=== PATIENT | female | born 1970 | race Caucasian/White ===

== ENCOUNTER 2019-02-03 11:49 | Day surgery (SDC) | payer OTHER ==
[~2019-02-03] VITALS: Ht 167.6 cm; Wt 106.6 kg
[~2019-02-03 11:49] MED LIST: AMBIEN5 MG PO; FLEXERIL10 MG PO; IMITREX100 MG PO; NORCO 5-325 TA1 EACH PO; ZYRTEC10 MG PO
[2019-02-03] MEDS ORDERED: PRILOSEC OTC20 MG PO (12:12)
--- NOTE | 2019-02-03 16:03 | NUR ---
02/03/19 1602 Madeline Whitley SN 1553 PT ARRIVES IN PACU IN LEFT LATERAL POSITION. PT IS ASLEEP. RESPIRATIONS ARE EVEN AND UNLABORED. O2 SAT MID TO HIGH 90'S. PT REACTS TO VOICE BUT FALLS BACK ASLEEP. 1557 02 DISOCNTINUES. PT TOLERATING WELL. REQUIRES FREQUENT REMINDERS TO TAKE DEEP BREATHS. 02 SATURATION LEVELS DROP TO HIGH 80'S, BUT RETURN TO MID 90'S WITH DEEP BREATHING. PT DENIES NAUSEA, DIZZINESS, AND PAIN AT THIS TIME. PT RESTING IN SUPINE POSITION.
--- NOTE | 2019-02-03 16:55 | NUR ---
PT RETURNS FROM PACU BACK TO ROOM 6 ON RA. PT NEEDS MORE TIME TO RECOVER FORM COLONOSCOPY. PT DESATS TO 80% WHEN ASLEEP. PT CURRENTLY AWAKE AND RA SATS ARE 100%. WILL CONTINUE TO MONITOR. PT PROVIDED WITH ICE WATER. FAMILY AT BEDSIDE. CALL LIGHT WITHIN REACH
--- NOTE | 2019-02-03 17:15 | NUR ---
PT AMBULATES TO BATHROOM TO VOID AND TOLERATES. PT DENIES LIGHTHEADEDNESS, NAUSEA. PT DENIES PAIN. PT ABLE TO VOID W/OUT DIFFICULTY. PT BACK TO BED. RA SATS REMAIN >90% FOR 30 MINUTES. IV DC'D WNL.
--- NOTE | 2019-02-03 17:48 | NUR ---
DC INSTRUCTIONS WITH PRECAUTIONS PROVIDED. PT VERBALIZES UNDERSTANDING AND DENIES FURTHER QUESTIONS. PT TRANSPORTED IN WHEELCHAIR TO VEHICLE DRIVEN BY SIGNIFICANT OTHER
--- NOTE | 2019-02-04 09:42 | OR ---
[facility] [address], [place] [address] Signed DATE OF OPERATION: 02/03/2019 SURGEON: Alee Lowe MD PREOPERATIVE DIAGNOSES: 1. Anemia. 2. Episodic dysphagia and known reflux long-standing. POSTOPERATIVE DIAGNOSES: 1. Low-grade Schatzki's ring with chronic esophagitis and poor flap valve. 2. Antral gastritis. 3. Sigmoid diverticulosis. PROCEDURE: 1. Esophagogastroduodenoscopy with biopsy. 2. Total colonoscopy to cecum. ANESTHESIA: Intravenous sedation, fentanyl 200 mcg and Versed 12 mg. INDICATION: This 48-year-old white woman is a patient of Dr. Elvia Kahn has longstanding reflux symptoms which is generally well managed with omeprazole. She does have episodic dysphagia. She has had no hematemesis or blood per rectum. She is noted to be anemic. She has never had colonoscopy in the past. She has no family history of colon cancer or esophageal cancer. Additionally, she has noticed a skin lesion in the right medial thigh that has enlarged over time for which excision is anticipated in the near future. She was admitted at this time to undergo upper endoscopy and colonoscopy to better determine the source of her anemia. She is morbidly obese, 5 feet 6 inches tall and 235 pounds. She understands the risks of bleeding, infection, and perforation related to upper endoscopy and colonoscopy and wished to proceed. FINDINGS: On upper endoscopy, the vocal cords were normal. The esophagus did not show ulceration or true stricture, though she did have a Schatzki's ring in the distal portion. There was mild felinization of the midportion. The stomach showed normal motility and rugal folds. The antrum was chronically inflamed. The pylorus was normal as was the duodenum. CLOtest was negative 40 minutes post procedure. On colonoscopy, she had numerous diverticula of the sigmoid and left colon, but no sign Electronically Signed By: AELE LOWE MD 02/04/19 0942 PATIENT NAME: ARCADIO MEDINA OPERATIVE REPORT DATE OF : 66 REPORT #: [id number] PHYSICIAN: ALEE LOWE MD PCP: ELVIA KAHN MD REPORT IS CONFIDENTIAL AND NOT TO BE RELEASED WITHOUT AUTHORIZATION [facility] [address], [place] [address] Signed of polyps, colitis, cancer, or other problem. Good visualization of the cecum was noted. DESCRIPTION OF PROCEDURE: The patient was brought to the endoscopy suite, given topical Hurricaine spray hypopharyngeal anesthesia and placed in lateral decubitus position. She was given intravenous sedation to the point of slurred speech and nystagmus. A bite block was placed. An Olympus video upper endoscope was passed in the hypopharynx. The vocal cords appeared normal. The scope was advanced to the esophagus without problem, throughout its length it looked reasonably normal. In the distal portion there was a low-grade Schatzki's ring. The scope was passed into the stomach, which was insufflated with air. Rugal folds were normal as was the antral motility. The pylorus was normal and scope was passed through into the duodenum, which was normal. Biopsies were taken there to assess for celiac disease. The scope was withdrawn and biopsies were taken of the antrum for both ANEESH and pathologic testing. The antrum did look to be chronically inflamed, but there was no jordan ulceration or erosion. Retroflexed view was undertaken showing an effaced flap valve. There was no sign of proximal gastric ulceration. The scope was withdrawn to the distal esophagus and the Schatzki's ring was biopsied. The scope was withdrawn to the mid portion where mild ring formation was noted. Biopsies were obtained to assess for eosinophilic esophagitis. Careful withdrawal of scope showed no other findings of concern. Plans were made for colonoscopy at that point. The table was rotated and additional sedation given. Digital rectal examination was normal. An Olympus video colonoscope was passed in the rectum and manipulated throughout the colon noting numerous diverticula of the sigmoid and left colon. Passage beyond the hepatic flexure required abdominal wall stabilization and additional sedation. The cecum was within reach, but the scope could not quite pass into it and therefore a "pull up" procedure was done with a forceps elevated in the mucosa behind the cecum and ileocecal valve. Ultimately, manipulating the scope to fully visualize the cecum itself. The appendiceal orifice was normal as was the ileocecal valve. The scope was then withdrawn from that point. Examination throughout, upon careful withdrawal of scope showed only diverticulosis of the sigmoid and left colon. No sign of polyps, colitis, cancer, or other issue. Retroflexed view was normal as well. The scope was removed. The patient was taken to recovery room in good condition. CONCLUDING DIAGNOSIS: 1. Schatzki's ring related to chronic esophagitis. No sign of Tejeda's epithelium or worsen lesion. 2. Chronic gastritis of antrum, probably related to ongoing use of nonsteroidal medication, ibuprofen. Electronically Signed By: ALEE LOWE MD 02/04/19 0942 PATIENT NAME: ARCADIO MEDINA OPERATIVE REPORT DATE OF : 66 REPORT #: [id number] PHYSICIAN: ALEE LOWE MD PCP: ELVIA KAHN MD REPORT IS CONFIDENTIAL AND NOT TO BE RELEASED WITHOUT AUTHORIZATION [facility] [address], [place] [address] Signed 3. Diverticulosis of colon. No sign of ulceration, neoplasm, or polyp. PLAN: I would recommend continued use of PPI medication, but minimizing nonsteroidal medication. She will return to the ongoing care of Dr. Kahn otherwise. MD JOSELITO Sherman/XIOMYL /[id number] cc: Elvia Kahn MD Copies: ~ Electronically Signed By: ALEE LOWE MD 02/04/19 0942 PATIENT NAME: ARCADIO MEDINA OPERATIVE REPORT DATE OF : 66 REPORT #: [id number] PHYSICIAN: ALEE LOWE MD PCP: ELVIA KAHN MD REPORT IS CONFIDENTIAL AND NOT TO BE RELEASED WITHOUT AUTHORIZATION
== END 2019-02-03 17:35 | disposition home or self-care (01) ==
LOC: OPS 11:49 → DS 11:49 → OPS 12:00 → DS 12:00 → OPS 17:35
PROVIDERS: Surgery
PROC: 0DB28ZX Excision of Middle Esophagus, Via Natural or Artificial Opening Endoscopic, Diagnostic (ICD-10-PCS; 2019-02-03)
PROC: 0DB38ZX Excision of Lower Esophagus, Via Natural or Artificial Opening Endoscopic, Diagnostic (ICD-10-PCS; 2019-02-03)
PROC: 0DJD8ZZ Inspection of Lower Intestinal Tract, Via Natural or Artificial Opening Endoscopic (ICD-10-PCS; 2019-02-03)
PROC: 0DB98ZX Excision of Duodenum, Via Natural or Artificial Opening Endoscopic, Diagnostic (ICD-10-PCS; principal; 2019-02-03 12:00)
PROC: 0DB78ZX Excision of Stomach, Pylorus, Via Natural or Artificial Opening Endoscopic, Diagnostic (ICD-10-PCS; 2019-02-03 12:00)
DX: K29.50 Unspecified chronic gastritis without bleeding (principal); K57.30 Diverticulosis of large intestine without perforation or abscess without bleeding; K22.2 Esophageal obstruction; K21.0 Gastro-esophageal reflux disease with esophagitis; E66.01 Morbid (severe) obesity due to excess calories; D48.5 Neoplasm of uncertain behavior of skin; D50.9 Iron deficiency anemia, unspecified; Z88.6 Allergy status to analgesic agent; Z68.37 Body mass index [BMI] 37.0-37.9, adult
CPT/HCPCS: 99153; G0500; J2250; J3010; J7120

== ENCOUNTER 2022-12-13 05:04 | Inpatient (IN) | payer OTHER ==
[~2022-12-13] VITALS: Ht 167.6 cm; Wt 111.8 kg
[~2022-12-13 05:04] MED LIST changes: +PRILOSEC OTC20 MG PO
--- NOTE | 2022-12-13 11:34 | NUR ---
PATIENT TO ROOM 116 TRANSPORTED BY GURNEY. PATIENT ABLE TO STAND TO TRANSFER TO BED, APPEARED STEADY ON FEET. FULL BODY ASSESSMENT DONE. FULL ADMISSION COMPLETED. ADMINISTERED 4MG OF MORPHINE PER MAR FOR SHARP RUQ PAIN 8/10 ON PAIN SCALE. ADMINISTERED MEDICATIONS PER MAR. LR BOLUS INFUSING. PATIENT HAD 15ML EMESIS OF BILE, ADMINISTERED 8MG IV ZOFRAN PER MAR. ULTRASOUND NOW IN ROOM, PATIENT RATES PAIN 4/10 ON PAIN SCALE, MORPHINE EFFECTIVE.
[2022-12-13] MEDS ORDERED: NEURONTIN300 MG PO (12:45)
[2022-12-13] MEDS ORDERED: ZOLOFT100 MG PO (12:45)
--- NOTE | 2022-12-13 12:57 | NUR ---
CALLED DR. LOWE, PROVIDED VERBAL REVIEW OF IMPRESSION OF US DONE. NO NEW ORDERS. NURSE HANDOFF TO KILO LOPEZ.
[2022-12-13] MEDS ORDERED: OMEPRAZOLE40 MG PO (13:51)
--- NOTE | 2022-12-13 14:06 | HP ---
[facility] [address] [place], [place] [address] Signed ADMISSION DATE: 12/13/2022 REASON FOR ADMISSION: Right upper abdominal pain and tenderness, possible cholecystitis. HISTORY OF PRESENT ILLNESS: This 52-year-old white woman presented to the emergency room this morning and was evaluated by Dr. Alee Valdes with complaints of severe right upper abdominal pain. His evaluation included a Chem profile, CBC and CT scan and urinalysis, all of which were essentially normal. A CT scan did show some diverticula of the hepatic flexure of the colon. She has marked tenderness and pain in the right upper quadrant, which is required a fair amount of opiate pain medication for control. The patient noticed not feeling well over the preceding 3 days and missed 2 days of work for it and last night at about 10 p.m. had more severe pain. She admits this was after eating. She had no associated diarrhea or constipation and no blood per rectum and no hematemesis. Her presentation was at approximately 6 a.m., initial evaluation by Dr. Jordan. The patient does note some right subscapular pain as well. The patient does have distant history of right nephrolithiasis approximately 10 years ago and thought that the pain was similar to that in the past. As noted; however, the CT scan showed small nonobstructing calculus seen in the left kidney. No ureteral calculi or hydronephrosis on the right or left side. The patient has undergone colonoscopy by me in the past she says. Review of the computer showed on February 03, 2019 that I performed upper endoscopy as well as colonoscopy. She had sigmoid diverticulosis at that time and a low-grade Schatzki's ring with chronic esophagitis. REVIEW OF SYSTEMS: She denies any precordial chest pain or shortness of breath. She has had no dysphagia or hematemesis and denies blood per rectum. SOCIAL HISTORY: She is . Her accompanies her. 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 She has grown children. PHYSICAL EXAMINATION: VITAL SIGNS: Her pulse is 55, blood pressure 132/75, respiratory rate 16. GENERAL: She is somewhat somnolent related to the pain medicine that has been administered, but she is able to appropriately answer questions. Her assists as well. Electronically Signed By: ALEE LOWE MD 12/13/22 1406 PATIENT NAME: ARCADIO MEDINA HISTORY AND PHYSICAL DATE OF : 66 REPORT #: [id number] PHYSICIAN: ALEE LOWE MD PCP: VENTURA DIALLO MD REPORT IS CONFIDENTIAL AND NOT TO BE RELEASED WITHOUT AUTHORIZATION [facility] [address] [place], [place] [address] Signed HEENT: Mucous membranes are slightly dry. Trachea is midline. CHEST: Shows normal respiratory excursion. She has no tachypnea. HEART: Regular. ABDOMEN: Obese. She has significant tenderness in the right upper quadrant. There is no ascites. She has no tenderness elsewhere. EXTREMITIES: Show no clubbing, cyanosis, or edema. LABORATORY STUDIES: Show a white count of 9.8, hematocrit 41.7, platelets 255,000. Chem profile is normal. Glucose 174. Hemoglobin A1c of 5.1. Liver enzymes are normal. Lipase 67, normal. Urinalysis is negative. Serologies negative for coronavirus. I have reviewed the CT scan as well as the interpretation by the radiologist. Diverticula are noted in the hepatic flexure of the colon. She has no evidence of basilar pneumonia. The gallbladder was somewhat distended, though that was not noted by the radiologist. I see no radiopaque stones in the gallbladder. Appears to be some haziness in the pericholecystic area including that of the colon itself. ASSESSMENT: The patient has significant tenderness and relatively recent onset of pain. I suspect either acute cholecystitis or less likely acute hepatic flexure diverticulitis. I have recommended admission to the hospital, IV antibiotic administration and we will obtain a gallbladder ultrasound to assess for stones. If stones are identified, then this represents acute cholecystitis related to gallstones and cholecystectomy would be recommended. If the gallbladder is entirely normal, this may well represent case of hepatic flexure colonic diverticulitis for which antibiotic therapy would be beneficial. I discussed this with the patient and her . They understand and agree. MD JOSELITO Sherman/MODL /[id number] cc: Dr. Alee Valdes [facility] Electronically Signed By: ALEE LOWE MD 12/13/22 1406 PATIENT NAME: ARCADIO MEDINA HISTORY AND PHYSICAL DATE OF : 66 REPORT #: [id number] PHYSICIAN: ALEE LOWE MD PCP: VENTURA DIALLO MD REPORT IS CONFIDENTIAL AND NOT TO BE RELEASED WITHOUT AUTHORIZATION [facility] [address] [place] [id number] Signed Copies: ~ Electronically Signed By: ALEE LOWE MD 12/13/22 1406 PATIENT NAME: ARCADIO MEDINA MEGAN HISTORY AND PHYSICAL DATE OF : 66 REPORT #: [id number] PHYSICIAN: ALEE LOWE MD PCP: VENTURA DIALLO MD REPORT IS CONFIDENTIAL AND NOT TO BE RELEASED WITHOUT AUTHORIZATION
--- NOTE | 2022-12-13 14:12 | NUR ---
PER MD GIVE ANCEF ONCE AT THIS TIME. SURGERY STAFF NOTIFIED OF ABX ORDER. PATIENT LEAVING THE MS FLOOR WITH OR CHARGE.
--- NOTE | 2022-12-13 14:25 | NUR ---
RECEIVED NURSE REPORT FROM HIRAM AT 1300. PATIENT REQUESTED TO VOID AT AFTER BEDSIDE REPORT- SBA TO BR AND PATIENT VOIDED 700 ML. ASSTED PT BACK TO BED AND SHE REPORTED RUQ PAIN 8/10 CONSTANT AND SHARP WITH MILD NAUSEA WITH PAIN. DR LOWE ARRIVED APPROX 1330 - DISCUSSED DX/PROCEDURE/CONSENT WITH PATIENT. AFTER CONSENT SIGNED MORPHINE PROVIDED SEE EMR. OBTAINED VS AND I&O. CHANGED PATIENT INTO HOSPITAL GOWN AND REMOVED UNDERWEAR PATIENT WITH BILE EMESIS X 1. SURGICAL WIPE DOWN COMPLETED. LR AND EXTENSION TUBING PROVIDED WHEN SURGICAL NURSES ARRIVED. NOFITIFED ORTHOPEDIC SHOE FITTER LENKA OCHOA AT TIME PATIENT LEFT FOR OR. PATIENT TO OR WITH SURGICAL NURSES APPROX 1412
--- NOTE | 2022-12-13 16:06 | NUR ---
12/13/22 1606 Mouna Beaulieu 1603: PT ARRIVES TO PACU SUPINE WITH OPA IN PLACE. Emani REYES CRNA AT BEDSIDE GIVES VERBAL REPORT. Lacy HOLDEN RN SECOND ASSITING WITH CHIN SUPPORT. PT NON AROUSAL WITH VERBAL OR PAINFUL SIMULI.
--- NOTE | 2022-12-13 17:10 | NUR ---
PATIENT ARRIVED TO MS ROOM 116 WITH DARSHAN DATA ARCHITECT MANAGER. PATIENT AWAKE AND TALKING WITH STAFF AND EATING ICE CHIPS. VITALS DONE. PATIENT HAS LAP SITES X3 AND AN ADDITIONAL SITE WITH A SANTA DRAIN PRESENT. SOME DRAINAGE NOTED AT UMBILLICUS LAP SITE. SANTA DRAIN HAS SANGENSOUS BLOOD PRESENT. PATIENT REPORTS SHOULDER PAIN AND SOME MILD ABD PAIN AT THIS TIME THAT IS TOLERABLE. PATRICIA CATHETER PRESENT. NO OTHER NEEDS AT THIS TIME. WILL CONTINUE TO CLOSELY MONITOR.
--- NOTE | 2022-12-13 17:39 | NUR ---
patient arrived from pacu at approx 1700- inital postop vs obtained by shannon doss RN. Patient is drowsy but easily awakes. patient's at bedside. patient arrived post op with 4 laprascopic abdominal inscisions. 2 midline (one superior and one umbelicus - sm amount of strike through at umbellical site. and 2 Rt abd sites (one RUQ and one inferior to that with SANTA in place) 4 lap sites total. Emptied 45 ml sero/sangenous drainage from SANTA at approx 1730. plan to reassess vs at 1800, and reinforce umbellicus lap site with gauze, and reassess pain. Will provide 7-up per patient request. diet has been modified to regular postoperatively
--- NOTE | 2022-12-13 19:24 | NUR ---
RECEIVED REPORT FROM OFFGOING SHIFT, HOURLY ROUNDING INITIATED.
--- NOTE | 2022-12-13 22:59 | NUR ---
RECEIVED PT FROM PREVIOUS NURSE PT ALERT AND ORIENTED ABLE TO MAKE NEEDS KNOWN. RESP EVEN ET UNLABORED. PT HAS RUQ SANTA DRAIN AND PATRICIA CATHETHER BOTH INTACT. PT ON CONTINUOUS PULSE OX. PT COMPLAINED OF PAIN AT 9 GIVEN PRN MORPHINE MED WAS EFFECTIVE. PT DESATS WHILE SLEEPING DOWN TO 85-88% PUT PT ON O2 @ 2L NC. PT HAS NO OTHER COMPLAINTS AT THIS TIME.
--- NOTE | 2022-12-14 06:25 | NUR ---
PT HAD UNEVENTFUL NIGHT RECEIVED PAIN MEDICATION SEVERAL TIMES THROUGHOUT THE NIGHT. PT STATED DIDN'T AMBULATE YESTERDAY AFTER SURGERY INFORMED THAT SHE WOULD HAVE TO AMBULATE SOMETIME THIS MORNING PT ALSO STATED DIDN'T PASS GAS OR HAVE BM. PT USES IS X 3 REPS @1500 WHILE AWAKE INSTRUCTED TO INCREASE REPS BY 2 EACH TIME USED. PT SANTA DRAIN INTACT 100ML OF SEROSANGUINOUS FLUID DRAINED. PATRICIA PATENT AND INTACT INFORMED PATRICIA WOULD MOST LIKELY BE D/C'D TODAY AND WOULD HAVE TO VOID BEFORE DISCHARGE PT UNDERSTOOD. PT CURRENTLY LYING IN BED USING IS. PT GIVEN PRN MORPHINE FOR PAIN @ 0553 MED WAS EFFECTIVE PAIN LEVEL DOWN FROM 10 TO AROUND 5. PT BP ELEVATED RECHECKED AFTER PAIN MEDICATION GIVEN 127/64. NO ACUTE DISTRESS NOTED AT THIS TIME.
--- NOTE | 2022-12-14 08:07 | NUR ---
PT IN BED THIS AM, NURSE AND ENVIRONMENTAL ANALYST HAD A CONVERSATION ABOUT PLANNING A WALK AND MOVEMENT. CALL LIGHT WITHIN REACH.
--- NOTE | 2022-12-14 09:30 | NUR ---
PATIENT IN CHAIR AFTER MEAL. VITALS AND I/O'S COMPLETED. PATRICIA DRAINED AND DOCUMENTED. CALL LIGHT WITHIN REACH.
--- NOTE | 2022-12-14 09:50 | NUR ---
PATRICIA REMOVED. PATIENT REPORTS PAIN CONTROLLED. HAS BEEN UP AMBULATING IN HALLS. EATING WELL, NO NAUSEA. VS WNL. OPSITES INTACT. SANTA DRAIN EMPTIED 50 ML RED BLOODY DRAINAGE. PATIENT DEMONSTRATED ABILITY TO EMPTY AND MANGE SANTA DRAIN.
--- NOTE | 2022-12-14 11:22 | NUR ---
DR. LOWE ROUNDED ON PATIENT. OKAY TO SL. PATIENT DRINKING WELL. VOIDED 100 ML POST PATRICIA REMOVAL. NEW ORDERS FOR PO PAIN MEDICATIONS. DR. LOWE VERBALIZED TO PATIENT TO AMBULATE IN HALLS THEN OKAY TO TAKE NAP. PATIENT AGREED AND IS NOW AMBULTING IN HALLS. NO OTHER NEEDS AT THIS TIME.
--- NOTE | 2022-12-14 12:05 | NUR ---
ADMINISTERED PAIN MEDICATION PER DEC. PATIENT REPORTS PAIN 8/10 ON PAIN SCALE, "SHARP GASSY LIKE" PAIN. PATIENT UP AMBULATING IN HALLS FOR THIRD TIME TODAY. LAP SITES ITACT WITH STERI STRIPS NO NEW DRAIANGE. PATIENT VOIDING WELL POST PATRICIA REMOVAL. NO OTHER NEEDS AT THIS TIME. PATIENT REQUESTING NAP, BACK INTO BED TO REST. CALL LIGHT WITHIN REACH. NO OTHER NEEDS AT THIS TIME.
--- NOTE | 2022-12-14 14:08 | NUR ---
PATIENT LYING IN BED RESTING, EYES CLOSED. VITALS AND I/O'S COMPLETED. CALL LIGHT WITHIN REACH.
--- NOTE | 2022-12-14 17:51 | NUR ---
PATIENT SITTING ON SIDE OF BED. VITALS AND I/O'S COMPLETED. CALL LIGHT WITHIN REACH.
--- NOTE | 2022-12-14 18:40 | NUR ---
SURGICAL LAP SITES INTACT, REINFORCED WITH BANDAIDS OVER STERI-STRIPS. SANTA DRAINAING BLOODY RED DRAINAGE, EMPTIED 80 MLS TOTAL FOR DAYSHIFT. DR. LOWE ROUNDED, PLAN FOR PATIENT TO POSSIBLY DISCHARGE TOMORROW. PATIENT CONTINUING WITH IV ANTIBIOTICS. PO PAIN CONTROL EFFECTIVE WITH PERCOCET, PLAN TO DISCHARGE HOME WITH PO MEDICAITON. PATIENT AMBULATING IN HALLS MULTIPLE TIMES THROUGHOUT DAY, HAS COMPLAINTS OF GAS PAIN UNDER COLLARBONE AND SHOULDER. TOLERATING REGULAR DIET WELL. PATRICIA DC'D THIS MORNING, HAS BEEN VOIDING WELL. SALINE LOCKED, INDEPENDANT IN ROOM. ROOM AIR O2 SATURATIONS 95-95% WITH SPOT CHECK. PLAN FOR LABS IN THE MORNING.
--- NOTE | 2022-12-14 23:40 | NUR ---
PT LYING IN BED RESTING QUIETLY. RESP EVEN ET UNLABORED PT PLACED ON O2 @ 2L NC WHILE SLEEPING PT DESATS DOWN TO 88%. PT USES IS WHILE AWAKE STATED SHE WALKED EARLIER IN THE DAY. PT IS VOIDING AFTER PATRICIA REMOVED. PT HAS NO COMPLAINTS OF PAIN AT THIS TIME. SANTA DRAIN INTACT DRESSING DRY.
--- NOTE | 2022-12-15 06:46 | NUR ---
PT HAD UNEVENTFUL NIGHT RESTED QUIETLY. PT SANTA DRAIN INTACT OUTPUT FOR ENTIRE SHIFT WAS 30ML. PT WANTED TO SHOWER INFORMED PT THAT SHE CAN'T SHOWER UNTIL MD SAYS SHE CAN BUT IF SHE WANTED TO DO A WIPE DOWN THAT WAS FINE LONG DRESSING DIDN'T GET WET. PT USED IS THROUGHOUT SHIFT WHILE AWAKE. PT SURRENTLY SITTING IN RECLINER.
--- NOTE | 2022-12-15 07:22 | NUR ---
REPORT FROM PRENATAL NURSE RN.
--- NOTE | 2022-12-15 09:51 | NUR ---
MORNING ASSESSMENT IS COMPLETE. PATIENT GIVEN ONE PERCOCET AFTER BREAKFAST FOR 3-4/10 ABD PAIN. SCOPE SITES ARE INTACT WITH STERI STRIPS. REDNESS NOTED TO UMBILICAL SITE. SANTA IS INTACT AND DRAINING SEROSANGUIOUS FLUID. DISCUSSION WITH PATIENT RE: GOING HOME WITH SANTA...SHE UNDERSTANDS CARE OF SANTA/TRACKING DAILY OUTPUT. PATIENT IS UP TO AMBULATE SEVERAL LAPS IN HALLWAY.
--- NOTE | 2022-12-15 11:05 | NUR ---
PATIENT IS SLEEPING WITH REGULAR RESPIRATIONS. IS IN ROOM WITH PATIENT.
--- NOTE | 2022-12-15 11:26 | NUR ---
SINCE FIVE THIRTY THIS MORNING PATIENT SAID SHE WALKED A TOTAL OF SIX LAPS AROUND MED SURG.
--- NOTE | 2022-12-15 12:46 | NUR ---
PATIENT GIVEN ONE PERCOCET FOR 6/10 ABD PAIN. SANTA DRAIN STRIPPED, SCANT DRAINAGE NOTED. PATIENT IS AWAITING DR. LOWE AND HOPING TO GO HOME TODAY. IN ROOM WITH PATIENT.
--- NOTE | 2022-12-15 14:29 | NUR ---
IV ANCEF PUSH DONE. PATIENT REPORTS VERY LOW PAIN AFTER PERCOCET, 1-2.
[2022-12-15] MEDS ORDERED: ACETAMINOPHEN500 MG PO (15:55)
[2022-12-15] MEDS ORDERED: OXYCODON-ACETA1 EAC2 PO (15:55)
--- NOTE | 2022-12-16 10:39 | DS ---
[facility] [address], [place] [address] Signed ADMISSION DATE: 12/13/2022 DISCHARGE DATE: 12/15/2022 REASON FOR ADMISSION: This 52-year-old white woman presented to the emergency room was evaluated by Dr. Valdes with complaints of severe right upper abdominal pain. She had essentially peritonitis. A CT scan showed diverticula of the hepatic flexure and a somewhat dilated and mildly thickened gallbladder, but no sign of stones or intrahepatic ductal dilatation. She had similar symptoms over the preceding three days. She was admitted for further evaluation and care for possibility of acute acalculous cholecystitis. PERTINENT PHYSICAL EXAMINATION: HEENT: Showed mild dehydration with slight dry mucous membranes. Trachea is midline. CHEST: Clear. HEART: Regular without murmur. ABDOMEN: Obese. There was marked tenderness in right upper quadrant. There is no palpable mass. No ascites. LABORATORY STUDIES: Showed a white count of 9.8, hematocrit 41.7, platelets 255,000. Chem profile is normal. Hemoglobin A1c is 5.1. CT scan showed diverticula of the hepatic flexure. No evidence of basilar pneumonia. The gallbladder was somewhat distended, but not noted by the radiologist. There is no radiopaque stone or intrahepatic ductal dilatation. HOSPITAL COURSE: She is admitted, given intravenous antibiotics on the presumption of acute cholecystitis. A gallbladder ultrasound was performed, which showed thickening and adherent stone debris and the common duct dilated to 12 mm. On the basis of these findings and despite normal lab studies otherwise, she underwent laparoscopy on December 13, 2022. This confirmed the findings of severe acute cholecystitis. Laparoscopic cholecystectomy was performed that was prolonged, complicated, and difficult on the basis of her intensity of inflammation. Cholangiogram showed a somewhat dilated common hepatic duct and common bile duct and narrowing at the distal common duct, though without sign of obstruction proper and no sign of retained stone or neoplasm. A drain was placed. Her postoperative course thereafter was reasonably straightforward. By day of discharge, she is ambulating well, tolerating a regular diet and is much improved. The drain that was placed showed no evidence of bile leak and was removed. She is discharged home in the care of her . She is to walk on a daily basis and avoid lifting more than 20 pounds for the next two weeks. She is permitted to work in two Electronically Signed By: ALEE LOWE MD 12/16/22 1039 PATIENT NAME: ARCADIO PATE DISCHARGE SUMMARY DATE OF : 66 REPORT #: [id number] PHYSICIAN: ALEE LOWE MD PCP: VENTURA DIALLO MD REPORT IS CONFIDENTIAL AND NOT TO BE RELEASED WITHOUT AUTHORIZATION [facility] [address], [place] [address] Signed weeks and a work release note was written to that effect. The drain has been replaced. She is permitted to shower. We will leave Steri-Strips on. DISCHARGE MEDICATIONS: Include: 1. Percocet 7.5/325, 1-2 p.o. q.4 hours p.r.n. pain #10, no refill. 2. Sertraline/Zoloft 100 mg p.o. daily. 3. Gabapentin/Neurontin 300 mg p.o. b.i.d. 4. Omeprazole 40 mg p.o. daily. 5. Additionally, she should take Tylenol 500 mg two tablets p.o. q.6 hours as needed for pain #60. DISCHARGE DIAGNOSES: 1. Severe acute acalculous cholecystitis, status post laparoscopic cholecystectomy with intraoperative cholangiogram. 2. Obesity. 3. Gastroesophageal reflux. MD JOSELITO Sherman/XIOMYL /[id number] cc: MD Dr. Lucio Vidales Dr. Copies: ~ Electronically Signed By: ALEE LOWE MD 12/16/22 1039 PATIENT NAME: ARCADIO PATE MEGAN DISCHARGE SUMMARY DATE OF : 66 REPORT #: [id number] PHYSICIAN: ALEE LOWE MD PCP: VENTURA DIALLO MD REPORT IS CONFIDENTIAL AND NOT TO BE RELEASED WITHOUT AUTHORIZATION
--- NOTE | 2022-12-16 10:39 | OR ---
[facility] [address] [place], [place] [address] Signed DATE OF OPERATION: 12/13/2022 SURGEON: Alee Lowe MD PREOPERATIVE DIAGNOSES: 1. Severe acute acalculous cholecystitis. 2. Obesity. 3. Dilated common bile duct on ultrasound. POSTOPERATIVE DIAGNOSES: 1. Severe acute acalculous cholecystitis. 2. Obesity. 3. Dilated common bile duct on ultrasound; no evidence of retained stone, narrowing of distal common duct. PROCEDURE: 1. Laparoscopic cholecystectomy with intraoperative cholangiogram, prolonged, complicated, difficult. 2. Surgeon-directed fluoroscopy. 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 INDICATION: This 52-year-old obese white woman is a patient of Dr. Kahn. She presented to the emergency room this morning, having the onset of severe pain last night at about 10 o'clock. She has not felt well over the past few days and missed work from it as well. Her evaluation by Dr. Jordan and subsequently Dr. Valdes showed a CT scan with some vague inflammatory changes in the right upper abdomen, but no thickening of the gallbladder itself. There were some diverticula at the hepatic flexure and consideration was made. This may represent atypical diverticulitis (hepatic flexure diverticulitis). Clinical exam shows her to be extremely tender in the right upper quadrant and the problem is most consistent with acute cholecystitis. Notably, her CBC and liver enzymes and amylase are all normal. She was admitted, given intravenous antibiotics, and ultrasound subsequently performed today showing what appeared to be some debris within the gallbladder, but no distinct stones. The gallbladder in my estimation did show thickening on ultrasound. There is also a 12 mm common bile duct for which concern is maintained for distal common duct stone despite liver enzyme findings. She has been fluid resuscitated and offered cholecystectomy preferred by Electronically Signed By: ALEE LOWE MD 12/16/22 1039 PATIENT NAME: ARCADIO PATE OPERATIVE REPORT DATE OF : 66 REPORT #: [id number] PHYSICIAN: ALEE LOWE MD PCP: VENTURA KAHN MD REPORT IS CONFIDENTIAL AND NOT TO BE RELEASED WITHOUT AUTHORIZATION [facility] [address] [place], [place] [address] Signed laparoscopic approach. I have discussed with the patient and her . The risks of bleeding, infection, common duct stone, need for open procedure and other unforeseen complications was reviewed in detail. She understands and wished to proceed. FINDINGS: The gallbladder was quite severely inflamed with dense omental adhesions. Indeed, clinical examination once relaxed under anesthesia demonstrated a firm mass in the right upper quadrant consistent with the gallbladder itself. Dissection of the gallbladder was challenging due to the severe inflammatory changes and dense omental adhesions. Ultimately, the gallbladder was fully exposed. Decompression was required showing light green colored gallbladder fluid. Though, challenging the infundibulum and cystic duct were well-defined and cholangiogram performed showed a dilated common bile duct and common hepatic duct, but no sign of retained stone or neoplasm per se. The distal common duct was very narrow, but passage of contrast into the duodenum was noted. It is not as likely this represents neoplasm of the pancreas as the length of the narrow area was not extensive. Cholecystectomy was bit able to be performed laparoscopically and the gallbladder once opened showed a beefy red extremely inflamed surface without sign of neoplasm nor sign of actual stone. DESCRIPTION OF PROCEDURE: The patient was brought to the operating room, given a general endotracheal anesthetic. Mindful of some degree of risk for need for common bile duct exploration. A Shah catheter was placed. Preoperative antibiotic Ancef and Flagyl had been given. Sequential compression device stockings used and heparin subcutaneously administered as well. After satisfactory preparation of the abdomen with chlorhexidine solution, the patient was draped. An infraumbilical incision was made and using an open Ronen cannula technique, pneumoperitoneum was achieved to a level of 14 mm of carbon dioxide gas. Intra-abdominal inspection showed no sign of ascites or carcinomatosis. The dense omental adhesions obscured the gallbladder. Three additional trocars were placed in usual configuration in the subxiphoid, right midclavicular, and right anterior axillary line. The adhesions to the gallbladder were intensely adherent. Using blunt electrocautery dissection, some of the omental adhesions were taken down. Sequential elevation of a tensely distended gallbladder was undertaken. The inflammation of the gallbladder was quite severe and ultimately decompression of gallbladder was undertaken with a needle device. This allowed for easier grasping of the gallbladder and elevation cephalad more fully. In the infundibulum, dense adhesions were also noted. A plane was created between them and the gallbladder itself and with meticulous care and a fair amount of patience in time, the infundibulum and ultimately the cystic duct were defined well. The cystic duct appeared slightly dilated. Using blunt dissection, a window was ultimately created at the cystic duct gallbladder junction. This was dissected free and more fully. A clip was applied across gallbladder cystic duct junction and a transverse Electronically Signed By: ALEE LOWE MD 12/16/22 1039 PATIENT NAME: ARCADIO PATE OPERATIVE REPORT DATE OF : 66 REPORT #: [id number] PHYSICIAN: ALEE LOWE MD PCP: VENTURA KAHN MD REPORT IS CONFIDENTIAL AND NOT TO BE RELEASED WITHOUT AUTHORIZATION [facility] [address] [place], [place] [address] Signed choledochotomy made in the cystic duct. A markedly thickened and inflamed cystic duct was noted. With various maneuvers, finally the cholangiocatheter was able to be passed into the cystic duct allowing for cholangiogram. Using surgeon-directed fluoroscopy, intraoperative cholangiography was undertaken showing free flow of contrast in the biliary tree. There was dilation of the common hepatic and common bile duct proper. The cholangiocatheter trocar obscured the distal common duct and a different angle was taken with the fluoroscope ultimately showing that the distal common duct had a narrow passageway, but there was no sign of obstruction and free flow of contrast was noted into the duodenum. There was no sign of stone or neoplasm proper. The distal portion, which was narrowed may represent intramural duodenum, less likely extrinsic pancreatic compression. The catheter was removed and the cystic duct was doubly clipped and divided. The gallbladder was dissected free in a retrograde fashion in the avascular plane, though there was enough edema and inflammation that there was still some minimal oozing of blood. Irrigation was undertaken. The gallbladder was placed in an endobag and extracted through the infraumbilical port and opened on the back table and found to have no sign of neoplasm, but marked inflammatory change of the mucosa with a beefy red, very inflamed mucosa. Irrigation was undertaken in the subhepatic space. Cautery was used to secure any oozing areas. Tisseel was applied in an aerosolized manner, also improving hemostasis. Excess irrigation fluid was suctioned free. There appeared to be no sign of bleeding or other problem. Through a right-sided 5 mm port site, a 7 mm flat Irineo drain was placed in the subhepatic space and secured the skin with nylon suture. The trocars removed under direct visualization showing no sign of bleeding. The infraumbilical fascial incision was reapproximated with interrupted 0 Vicryl suture. A 20 mL of 0.25% Marcaine with epinephrine was injected locally. Skin incisions were closed with interrupted 3-0 Vicryl and Steri-Strips were applied. The patient was ultimately extubated and transferred to the recovery room in good condition and suffered no complication. Sponge, needle, and instrument counts reported as correct x3. The operation was prolonged, complicated, and difficult. The patient had an extent of inflammation, obesity and so forth, lasting four times longer would be expected. Alee Lowe MD Electronically Signed By: ALEE LOWE MD 12/16/22 1039 PATIENT NAME: ARCADIO PATE OPERATIVE REPORT DATE OF : 66 REPORT #: [id number] PHYSICIAN: ALEE LOWE MD PCP: VENTURA KAHN MD REPORT IS CONFIDENTIAL AND NOT TO BE RELEASED WITHOUT AUTHORIZATION [address] [address] Signed JOSELITO/CRUZ /[id number] cc: MD Alee Vidales MD [facility] Copies: ~ Electronically Signed By: ALEE LOWE MD 12/16/22 1039 PATIENT NAME: ARCADIO PATE MEGAN OPERATIVE REPORT DATE OF : 66 REPORT #: [id number] PHYSICIAN: ALEE LOWE MD PCP: VENTURA KAHN MD REPORT IS CONFIDENTIAL AND NOT TO BE RELEASED WITHOUT AUTHORIZATION
--- NOTE | 2022-12-18 10:30 | PATH ---
[facility] [address] [facility] [place], [place] [address] Signed SPECIMEN(S): A GALLBLADDER SPECIMEN SOURCE: A. GALLBLADDER CLINICAL HISTORY: Acute cholecystitis, RUQ pain. FINAL PATHOLOGIC DIAGNOSIS: Gallbladder, cholecystectomy: - Acute, acalculous cholecystitis. - Early gangrenous change is also identified. TWK:cml:C2NR MICROSCOPIC EXAMINATION: Histologic sections of all submitted blocks are examined by light microscopy. These findings, together with the gross examination, support the pathologic diagnosis. GROSS DESCRIPTION: The specimen, labeled and designated "Cassie, gallbladder," is received in formalin and consists of Specimen: Previously opened gallbladder. Dimensions: 10.5 x 4.5 x 2.4 cm. Serosa: Rose to red-brown, smooth. Cystic Duct: Unobstructed, margin inked black and shaved. Calculi: Not grossly identified. Mucosa: Red-brown, roughened and edematous. Wall thickness: Up to 0.7 cm. Lymph node: No pericystic lymph nodes are grossly identified. Additional: None. Sucker Machine Operator sections are submitted in (A1). AC (under the direct supervision of a pathologist) The Gross Description was prepared using a voice recognition system. The report was reviewed for accuracy; however, sound-alike word errors, addition and/or deletions may occur. If there is any question about this report, please contact Client Services. PERFORMING LABORATORY: The technical component was performed by [facility], [address] [place] [id number] (CLIA# [id number]). Professional interpretation was PATIENT NAME: ARCADIO PATE PATHOLOGY DATE OF : 66 REPORT #: [id number] PHYSICIAN: JULIET PATHOLOGY PCP: VENTURA DIALLO MD REPORT IS CONFIDENTIAL AND NOT TO BE RELEASED WITHOUT AUTHORIZATION [address] [address] Signed performed by [facility], [facility], [facility], [place] [address] (CLIA# [id number]). Diagnostician: Danny Jimenez MD Pathologist Electronically Signed 12/18/2022 Copies: ~ PATIENT NAME: ARCADIO PATE PATHOLOGY DATE OF : 66 REPORT #: [id number] PHYSICIAN: JULIET PATHOLOGY PCP: VENTURA DIALLO MD REPORT IS CONFIDENTIAL AND NOT TO BE RELEASED WITHOUT AUTHORIZATION
== END 2022-12-15 16:35 | disposition home or self-care (01) | DRG 419 ==
LOC: ED 05:04 → MS 05:07
PROVIDERS: ADMIT Surgery; ATTEND Surgery
PROC: BF532Z0 Other Imaging of Gallbladder and Bile Ducts using Fluorescing Agent, Intraoperative (ICD-10-PCS; 2022-12-13)
PROC: 0FT44ZZ Resection of Gallbladder, Percutaneous Endoscopic Approach (ICD-10-PCS; principal; 2022-12-13 13:56)
DX: K81.0 Acute cholecystitis (principal); Z20.822 Contact with and (suspected) exposure to COVID-19; E66.9 Obesity, unspecified; Z68.39 Body mass index [BMI] 39.0-39.9, adult; Z88.8 Allergy status to other drugs, medicaments and biological substances; Z79.899 Other long term (current) drug therapy
CPT/HCPCS: 00790; 36415; 74176; 74300; 76705; 80053; 81003; 83036; 83690; 85025; 86301; A9270; C9803; J0330; J0690; J1100; J1170; J1644; J1885; J2001; J2250; J2270; J2405; J2704; J3010; J7121; Q9967; U0003